=== PATIENT | male | born 1955 | race Caucasian/White ===

== ENCOUNTER 2019-07-28 13:59 | Outpatient (RCR) | payer MEDICARE, SELFPAY | END 2019-08-06 23:59 | disposition home or self-care (01) | LOC: SPT 13:59 | PROVIDERS: Family Provider Physician Assistant; PCP Physician Assistant; Referring Provider Orthopaedic Surgery; Visit Provider Orthopaedic Surgery | DX: M75.02 Adhesive capsulitis of left shoulder (principal) | CPT/HCPCS: 97110; 97140; 97161 ==

== ENCOUNTER 2019-08-12 | Outpatient (RCR) | payer MEDICARE, SELFPAY | END 2019-08-13 | disposition home or self-care (01) | LOC: SPT | PROVIDERS: Family Provider Physician Assistant; PCP Physician Assistant; Referring Provider Orthopaedic Surgery; Visit Provider Orthopaedic Surgery | DX: M75.32 Calcific tendinitis of left shoulder (principal) | CPT/HCPCS: 97110 ==

== ENCOUNTER 2019-08-25 07:58 | Day surgery (SDC) | payer MEDICARE, SELFPAY ==
[2019-08-24 12:47] VITALS: BMI 27.3
[2019-08-25] VITALS (10 sets, daily range): BP systolic 104–158; BP diastolic 67–96; PULSE 71–81; RESP 15–20; TEMP 36.2–36.4; O2SAT 96–100
[2019-08-25 08:47] LABS: Glucose Point of Care 182 mg/dL (70-110)
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
[2019-08-25] MEDS: sodium chloride 0.9% 1,000 ML 30 ML IV (08:53)
[2019-08-25] MEDS: midazolam 1 mg/mL INJ 2 mL 2 MG IVP (09:05)
--- NOTE | 2019-08-25 09:15 | ANES.PROC ---
Anesthesia Procedures Procedure/Date: 08/25/19 Nerve Block ^: Nerve Block 1: Main Anesthesia: general anesthesia Time Out Performed: Yes Consent: requested by attending/covering physician, from patient, risks and benefits reviewed and patient agrees to proceed Nerve block location: interscalene (L) Anesthesia monitors applied: pulse oximetry, BP cuff and oxygen Nerve block position: semi sitting Anesthetic Used: ropivicaine 0.5% (20 ml) and with decadron ( 4 mg) Ultrasound used to: recognize landmarks and visualize and ID interscalene groove Nerve Stimulator Used?: No Interscalene/Femoral BLK: 2 stimuplex 22 g needle used for position and inplane approach Injection: neg aspiration of heme Patient Tolerated Procedure: well Complications: none
--- NOTE | 2019-08-25 09:20 | SUR.PREOP ---
LEFT NERVE BLOCK PERFORMED BY DOCTOR CASTANEDA SUCCESSFULLY. PT TOLERATED WELL.GOOD RESPIRATIONS. VITAL SIGNS MONITORED THROUGHOUT.
--- NOTE | 2019-08-25 09:26 | W.PM.OPSUD ---
Surgery/Procedure H&P Update DATE OF PROCEDURE: August 25, 2019 DATE H&P PERFORMED: 08/19/19 H&P UPDATE INFORMATION: I have reviewed H&P completed within last 30 days PREOP DIAGNOSIS: CALCIFIC TENDINITIS LEFT SHOULDER PLANNED PROCEDURE: Operation Date: 08/25/19 09:20 Proposed Procedures p Shoulder Arthroscopy 39149 M75.32(Left) - Jeremi Romeo MD
--- NOTE | 2019-08-25 11:28 | P.OP_ITS ---
Operative Report Date of procedure: August 25, 2019 Pre-op Diagnosis: CALCIFIC TENDINITIS LEFT SHOULDER Post-op diagnosis: same Post-op Findings: The patient had a well demarcated area of calcification in the central supraspinatus just medial to its insertion on the greater tuberosity. He had generalized degeneration of the tendon with poor vascularity Procedure Done: Debridement of calcific deposits left rotator crater cuff and arthroscopic repair with bio inductive implant, left subacromial decompression Implants: Regenetin implant Pathology: none sent Anesthesia: General and Nerve Block (Interscalene block) Estimated blood loss (mL): 10 Findings: The patient had a well demarcated area of calcium buildup just medial to the supraspinatus insertion. There is generalized poor vascularity in the area of deposits. Debridement left a area of central intralaminar area tearing. A bio inductive implant was placed to facilitate healing of this poorly vascular degenerative tendon. Patient had prominent subacromial spurring, type II f Condition: stable Disposition: PACU Brief History: The patient is a 64-year-old male with left shoulder pain attributable to calcific tendinitis Procedure: Rating room after he was given an interscalene block in holding. He was given 2 g of Ancef. He was prepped and draped in the lateral position with his left shoulder exposed. A timeout was performed. The shoulder was initially entered through a posterior portal made 2 cm inferior medial to the posterior horn of the acromion. A scope cannula and trocar were driven into the glenohumeral joint space. An anterior working portal was made. The biceps tendon was probed and found to be healthy. The articular side of the rotator cuff was inspected and found to be free of tearing. There is no specific degenerative changes of the glenohumeral joint and his labrum appeared healthy. The scope was then moved to the subacromial space and a lateral working portal was fashioned. He had prominent anterior spurring of his acromion. A subacromial decompression was chosen to alleviate pressure on the rotator cuff and make more room for the future bio inductive implant. The leading edge of the acromion was outlined with a Rush and Nephew Werewolf probe. A 5.5 mm acromionizer was introduced and approximately 5 mm of anterior and inferior acromion removed. Attention was then focused on the rotator cuff. The tuberosity was palpated just medial to that a probe was used to penetrate the bursal cuff. A well- circumscribed area of calcium deposits was identified. The probe was passed into the defect and used to free deposits which were removed with an incisor shaver. This left an approximately 1 cm in diameter intrasubstance area by tearing of a poor vascularity. To facilitate healing of this degenerative poorly vascular tissue a bio and inductive implant was a place. The scope was then placed back into the glenohumeral joint. The biceps tendon was marked with 2 spinal needles. The scope was then placed back into the subacromial space. Through a more distal anterior portal the Rush and Nephew Regeneten implant was then placed. It was fixed anteriorly and medially and posteriorly with soft tissue refugio placed through a small lateral portal just lateral to the acromion. To the lateral working portal and anterior lateral and posterior lateral bone refugio were placed. Arthroscopy equipment was removed. Orders were closed with 3-0 Prolene. Sterile dressings were applied. The patient was placed in a sling. The patient was extubated taken to recovery room in stable condition.
--- NOTE | 2019-08-25 11:42 | SUR.PHASEI ---
PT AWAKE ALERT ON RA GOOD RESP NOTED VSS PT DENIES PAIN AND NAUSEA FIRST ICE TO LT SHOULDER , DISTAL LT HAND PINK WARM , SLING IN PLACE HOB AT 40 DEGREES, SATS 95%
== END 2019-08-25 13:35 | disposition home or self-care (01) ==
PROVIDERS: Family Provider Physician Assistant; PCP Physician Assistant; Visit Provider Orthopaedic Surgery
PROC: (CPT 29805; principal; 2019-08-25 09:20)
DX: M75.32 Calcific tendinitis of left shoulder (principal); M75.02 Adhesive capsulitis of left shoulder; I10 Essential (primary) hypertension; E11.9 Type 2 diabetes mellitus without complications; Z86.73 Personal history of transient ischemic attack (TIA), and cerebral infarction without residual deficits; F17.290 Nicotine dependence, other tobacco product, uncomplicated; Z79.82 Long term (current) use of aspirin; Z79.84 Long term (current) use of oral hypoglycemic drugs
CPT/HCPCS: 29823; 29826; 29827; 12345; 36416; 82962; 96374; C1713; J0690; J1100; J2001; J2250; J2405; J2704; J2795; J3010; J3490; J7030

== ENCOUNTER → 2019-11-30 14:44 | Outpatient (BNVA) | payer MEDICARE, SELFPAY | PROVIDERS: Family Provider Physician Assistant; PCP Physician Assistant; Visit Provider Specialist | DX: G40.109 Localization-related (focal) (partial) symptomatic epilepsy and epileptic syndromes with simple partial seizures, not intractable, without status epilepticus (principal); F17.220 Nicotine dependence, chewing tobacco, uncomplicated | CPT/HCPCS: 99213 ==

== ENCOUNTER 2020-06-15 12:07 | Outpatient (CLI) | payer MEDICARE, SELFPAY ==
--- NOTE | 2020-06-15 13:00 | MR_ITS ---
WS: [id number] MRA ANGIOGRAPHY JAMUL OF BERNAL HISTORY: G45.9 - Transient cerebral ischemic attack, unspecified COMPARISON: None available. TECHNIQUE: 3-D MR angiography is performed of the [place] of [place]. All images are reviewed including source images. Small caliber but patent distal RIGHT vertebral artery. Dominant LEFT vertebral artery. Basilar arter y is normal caliber. Posterior cerebral arteries are patent. Posterior communicating arteries are bot h present and patent although very small caliber. Intracranial portion of the internal carotid arteries are normal course and caliber. No significant a therosclerosis, stenosis or aneurysm identified. Middle and anterior cerebral arteries are both paten t with no significant disease. Anterior communicating artery is also normal. MR/MR angio head wo con [id number] IMPRESSION: 1. Patent but hypoplastic posterior communicating arteries, bilateral. 2. No aneurysms or occlusions.
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
[2020-06-15 13:39] LABS: Blood Urea Nitrogen 13 mg/dL (8-23); Glomerular Filtration Rate 113.2 mL/min (90-130)
--- NOTE | 2020-06-15 13:45 | MR_ITS ---
WS: [id number] MRA CAROTID ARTERIES HISTORY: G45.9 - Transient cerebral ischemic attack, unspecified COMPARISON: None available. TECHNIQUE: MRA is performed with intravenous gadolinium. MIP and source images are reviewed. Right: Normal common, internal and external carotid arteries. No stenosis or occlusions. Left: Normal common, internal and external carotid arteries. No stenosis or occlusion. Subclavian Arteries: Normal with no stenosis. Vertebral Arteries: Normal with no stenosis or occlusions. LEFT vertebral artery is slightly dominant . MR/MR angio neck w con* [id number] IMPRESSION: Normal MR angiographic carotid arteries. No significant stenosis.
== END 2020-06-15 12:08 | disposition home or self-care (01) ==
LOC: RADSHAW 12:13
PROVIDERS: Family Provider Physician Assistant; PCP Physician Assistant; Visit Provider Specialist
DX: G45.9 Transient cerebral ischemic attack, unspecified (principal); G31.9 Degenerative disease of nervous system, unspecified; I63.9 Cerebral infarction, unspecified
CPT/HCPCS: 70544; 70548; 70551; 82565; 84520; A9579

== ENCOUNTER → 2020-11-21 14:01 | Outpatient (BNVA) | payer MEDICARE, SELFPAY | PROVIDERS: Family Provider Physician Assistant; PCP Physician Assistant; Visit Provider Specialist | DX: G40.109 Localization-related (focal) (partial) symptomatic epilepsy and epileptic syndromes with simple partial seizures, not intractable, without status epilepticus (principal); R55 Syncope and collapse; F17.220 Nicotine dependence, chewing tobacco, uncomplicated | CPT/HCPCS: 99214 ==

== ENCOUNTER 2021-07-12 18:07 | Emergency (ER) | payer MEDICARE, SELFPAY ==
[2021-07-12 18:13] VITALS: BP 170/81; PULSE 116; RESP 16; TEMP 36.6; O2SAT 99; BMI 28.1
--- NOTE | 2021-07-12 18:17 | XR_ITS ---
WS: [id number] PORTABLE CHEST HISTORY: RIB PAIN FALL COMPARISON: 04/01/2016 Vague area of increased density posterior to the LEFT heart partially obscuring the LEFT ventricle. M ild coarsened thickened interstitial changes throughout the periphery of the LEFT upper lobe. No ple ural effusion or pneumothorax. Cardiac size: Mildly enlarged cardiac silhouette. Mediastinum/Aorta: Mild atherosclerosis aorta. No osseous abnormality seen. No rib fractures identified. If patient's pain is in the LEFT lower thorax the lung changes may be re lated to a pulmonary contusion. XR/XR chest 1V portable [id number] IMPRESSION: 1. Increased consolidation with obscuration of the LEFT heart border. Favor th is is probably pneumonia. Recommend follow-up to resolution to exclude underlyi ng mass or neoplasm. 2. Mild cardiomegaly.
--- NOTE | 2021-07-12 18:19 | XRR_ITS ---
PROCEDURE INFORMATION: Exam: XR Left Ribs with PA Chest Exam date and time: 07/12/2021 6:19 PM Age: 66 years old Clinical indication: Other: Lt. Rib pain; Additional info: Fall TECHNIQUE: Imaging protocol: XR Left ribs with PA chest. Views: 3 views COMPARISON: CR XR chest 1V portable [id number] 07/12/2021 6:26 PM FINDINGS: Lungs: No consolidation. Pleural spaces: No pleural effusion. No pneumothorax. Heart/Mediastinum: Mild cardiomegaly. Bones/joints: No evidence of left rib fracture. Visualized osseous structures are intact. XR/XR ribs LT mn 3V w CXR1V [id number] IMPRESSION: 1. No evidence of left rib fracture. 2. Mild cardiomegaly.
--- NOTE | 2021-07-12 19:47 | ED_ITS ---
HPI - Fall General: Chief Complaint: Fall Stated Complaint: Injury Rib Hurt Time Seen by Provider: 07/12/21 19:11 History of Present Illness: HPI Narrative: Patient fell striking chest on a step today he says he has rib pain. Denies any shortness of breath or other related problems. complaint: fall Onset (ago): hour(s) Fall from: standing Fall witnessed: no Place fall occurred: home Loss of consciousness: None Context: tripped/slipped Associated symptoms-after fall: Reports no associated symptoms Review of Systems Const: Denies: fever(s) or chills Resp: Denies: dyspnea Musc: Reports: other (Rib pain from fall striking a step today) Psych: Denies: anxiety PFSH ED PFSH: Medical History (Updated 07/12/21 @ 19:44 by MICHAEL Trvais) Diabetes type 2, controlled Social History Smoking and tobacco status: heavy tobacco smoker smokeless tobacco Smokeless tobacco user: chewing tobacco Alcohol intake: never History of recent travel: No Physical Exam Const: COMMON NORMALS: no acute distress GENERAL APPEARANCE: cooperative Resp: COMMON NORMALS: normal respiratory effort Psych: COMMON NORMALS: mental status grossly normal Skin: COMMON NORMALS: no rashes or lesions noted GENERAL SKIN EXAM: no rashes or lesions noted Course Vital Signs: Vital signs: Vital Signs Temperature 97.9 F 07/12/21 18:13 Pulse Rate 116 H 07/12/21 18:13 Respiratory Rate 16 07/12/21 18:13 Blood Pressure 170/81 07/12/21 18:13 Pulse Oximetry 99 07/12/21 18:13 Discharge Plan Discharge Patient Disposition: Home Clinical Impression: Contusion of rib on left side Qualifiers: Encounter type: initial encounter Qualified Code(s): S20.212A - Contusion of left front wall of thorax, initial encounter Condition: Stable Prescriptions: New Celebrex 100 mg capsule 100 mg PO BID Qty: 20 RF: 0 Discontinued naproxen [Naprosyn] 500 mg tablet 500 mg PO BID PRN (Reason: pain) Qty: 60 RF: 0 No Action carbamazepine [Tegretol] 200 mg tablet 200 mg PO DAILY Qty: 90 RF: 3 levetiracetam [Keppra] 1,000 mg tablet 1,000 mg PO DAILY Qty: 90 RF: 3 metformin 850 mg tablet 850 mg PO BID RF: 0 Januvia 25 mg tablet 25 mg PO ONCE RF: 0 losartan 50 mg tablet 100 mg PO DAILY RF: 0 metoprolol succinate 50 mg Tablet Extended Release 24 Hr 50 mg PO DAILY RF: 0 amlodipine 5 mg Tablet 5 mg PO DAILY RF: 0 rosuvastatin 10 mg tablet 10 mg PO DAILY RF: 0 oxycodone 5 mg tablet 5 mg PO Q4H PRN (Reason: pain) Qty: 40 RF: 0 Discharge Orders: Discharge ED (Routine); Ordered 07/12/21 Ordered By: Rich Simpson Discharge Diet: Usual diet Discharge Activity: Increase activity as tolerated Patient Instructions: Contusion in Adults (ED) Activity Restrictions/Additional Instructions: Follow-up with medical provider as directed. Take medications as prescribed. Return to the ER or your medical provider if condition worsens. Please read and understand discharge instructions. If any questions ask please. Apply ice to area as needed. Coding Level of Care Code ED Infrastructure Developer for Manoj Haines
[2021-07-12 20:02] VITALS: RESP 18
== END 2021-07-12 20:03 | disposition home or self-care (01) ==
PROVIDERS: Emergency Provider Nurse Practitioner Family
DX: S20.212A Contusion of left front wall of thorax, initial encounter (principal); E11.9 Type 2 diabetes mellitus without complications; F17.220 Nicotine dependence, chewing tobacco, uncomplicated; W19.XXXA Unspecified fall, initial encounter
CPT/HCPCS: 71045; 71101; 99282

== ENCOUNTER → 2021-11-21 14:47 | Outpatient (BNVA) | payer MEDICARE, SELFPAY | PROVIDERS: Visit Provider Specialist | DX: G40.109 Localization-related (focal) (partial) symptomatic epilepsy and epileptic syndromes with simple partial seizures, not intractable, without status epilepticus (principal) | CPT/HCPCS: 99212; 99214 ==

== ENCOUNTER 2022-09-04 10:51 | Emergency (ER) | payer MEDICARE, SELFPAY ==
[2022-09-04 11:30] VITALS: BP 125/80; PULSE 83; TEMP 36.7; O2SAT 97; BMI 28.1
--- NOTE | 2022-09-04 11:37 | XRR_ITS ---
PROCEDURE INFORMATION: Exam: XR Right Knee Exam date and time: 09/04/2022 11:48 AM Age: 67 years old Clinical indication: Injury or trauma; Fall; Blunt trauma; Knee; Right TECHNIQUE: Imaging protocol: Radiologic exam of the right knee. Views: 3 views. COMPARISON: CR XR foot RT min 3V* [id number] 09/04/2022 11:46 AM FINDINGS: Bones/joints: Osseous structures of the knee normal. No fracture. No joint effusion. Soft tissues unremarkable. Soft tissues: See Bones/joints finding. XR/XR knee RT 3V* [id number] IMPRESSION: Normal knee.
--- NOTE | 2022-09-04 11:37 | XRR_ITS ---
PROCEDURE INFORMATION: Exam: XR Right Ankle Exam date and time: 09/04/2022 11:44 AM Age: 67 years old Clinical indication: Injury or trauma; Fall; Sprain or strain; Ankle; Right TECHNIQUE: Imaging protocol: Radiologic exam of the right ankle. Views: 3 or more views. COMPARISON: No relevant prior studies available. FINDINGS: Bones/joints: Medial and lateral malleoli are normal. Ankle mortise symmetrical. No fracture. Hindfoot foot unremarkable. Tibiotalar joint and subtalar joint normal. Soft tissues: Mild soft tissue swelling laterally. Mild soft tissue swelling adjacent to the lateral malleolus. Spur formation at the insertion of the Achilles' tendon XR/XR ankle RT min 3V* [id number] IMPRESSION: 1. No fracture 2. Mild soft tissue swelling adjacent to the lateral malleolus.
--- NOTE | 2022-09-04 11:43 | XRR_ITS ---
PROCEDURE INFORMATION: Exam: XR Right Foot Exam date and time: 09/04/2022 11:46 AM Age: 67 years old Clinical indication: Injury or trauma; Fall; Sprain or strain; Foot; Right; Additional info: Injury/pain TECHNIQUE: Imaging protocol: Radiologic exam of the right foot. Views: 3 or more views. COMPARISON: CR XR ankle RT min 3V* [id number] 09/04/2022 11:44 AM FINDINGS: Bones/joints: hindfoot-midfoot and midfoot-forefoot articulations are normal. metatarsals and the phalanges without an acute process. subtalar joint and the tibiotalar joint appears normal. Ossific prominence dorsally at the level of the midfoot forefoot articulation. Likely chronic. Soft tissues: Normal. XR/XR foot RT min 3V* [id number] IMPRESSION: No acute process.
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
--- NOTE | 2022-09-04 14:49 | DCPLANNER ---
Addendum entered by Sania Gonzales 09/12/22 07:59: Patient had a follow up appointment scheduled with ortho - patient did attend appointment. Original Note: manager line had message to schedule a follow up appointment for patient with ortho. manager line sent patients information to the front office staff at ortho. Patients information will be printed and reviewed. Clinic will call patient with appointment information.
--- NOTE | 2022-09-05 14:21 | DCPLANNER ---
Addendum entered by Sania Gonzales 09/05/22 14:24: this was on wrong patient Original Note: hotel operations manager had message to schedule a follow up appointment for patient with cardiology. hotel operations manager sent patients information to the front office staff at [facility]. Patients information will be printed and reviewed. Clinic will call patient with appointment information. hotel operations manager also had message to schedule an outpatient appointment with heart care for a 7 day event monitor. hotel operations manager faxed signed order to heart care, who will call patient with appointment information.
--- NOTE | 2022-09-11 15:05 | DCPLANNER ---
09.06.22 - TCM called patient due to no primary care physician listed in patients chart - patient states that he sees Donna Lama [place] [facility] [place]
== END 2022-09-04 13:26 | disposition home or self-care (01) ==
PROVIDERS: Emergency Provider Physician Assistant; PCP Physician Assistant
DX: S93.401A Sprain of unspecified ligament of right ankle, initial encounter (principal); Z79.84 Long term (current) use of oral hypoglycemic drugs; E11.9 Type 2 diabetes mellitus without complications; V29.39XA Other motorcycle (driver) (passenger) injured in unspecified nontraffic accident, initial encounter; S80.211A Abrasion, right knee, initial encounter; S92.901A Unspecified fracture of right foot, initial encounter for closed fracture
CPT/HCPCS: 73562; 73610; 73630; 99283; E0114

== ENCOUNTER 2022-09-10 15:13 | Outpatient (CLI) | payer MEDICARE, SELFPAY | END 2022-09-10 15:14 | disposition home or self-care (01) | LOC: SPT 15:14 | PROVIDERS: Visit Provider Podiatrist Foot & Ankle Surgery | DX: Z46.89 Encounter for fitting and adjustment of other specified devices (principal); S99.921D Unspecified injury of right foot, subsequent encounter; V29.99XD Rider (driver) (passenger) of other motorcycle injured in unspecified traffic accident, subsequent encounter; S92.024A Nondisplaced fracture of anterior process of right calcaneus, initial encounter for closed fracture; S92.311A Displaced fracture of first metatarsal bone, right foot, initial encounter for closed fracture; S92.251A Displaced fracture of navicular [scaphoid] of right foot, initial encounter for closed fracture; V29.99XA Rider (driver) (passenger) of other motorcycle injured in unspecified traffic accident, initial encounter | CPT/HCPCS: 97760; 99204; L4361 ==

== ENCOUNTER 2022-09-12 07:41 | Outpatient (CLI) | payer MEDICARE, SELFPAY ==
--- NOTE | 2022-09-12 08:00 | CT_ITS ---
WS: [id number] CT RIGHT FOOT, NONCONTRAST. HISTORY: surgical planning possible fracture to the second met Technique: All CT scans at [facility] use at least one of these dose optimization techniques: automated exposure control; mA and/or kV adjustment per patient size (includes targeted exams where dose is matched to clinical indication); or iterative reconstruction. DLP: 114.05 mGy.cm COMPARISON: Foot radiograph 09/04/2022. Acute fracture involving the anterior process of the calcaneus. There are several small avulsion frac tures involving the lateralmost calcaneus. The remaining calcaneus is normal. No talar fracture. Norm al alignment of the tarsal bones. There is in the additional very tiny avulsion fracture from the aren icular closely associated with the anterior calcaneal process fracture. This is probably an additiona l impaction fracture from the navicular. Small osteophyte versus tiny avulsion fracture along the dorsal surface of the foot. This is a fractu re most likely from the intermediate cuneiform. Tiny avulsion fracture from the proximal dorsal surfa ce first metatarsal. Remaining metatarsals are intact. Small amount of soft tissue edema around the midfoot. CT/CT foot RT wo con* [id number] IMPRESSION: 1. Small avulsion fractures from the anterior, lateral process of the calcaneu s. 2. Additional small impaction fracture from the navicular. 3. Small avulsion fracture from the dorsal surface of the intermediate cuneifo rm and proximal first metatarsal.
== END 2022-09-12 07:42 | disposition home or self-care (01) ==
PROVIDERS: PCP Physician Assistant; Visit Provider Podiatrist Foot & Ankle Surgery
DX: Z01.818 Encounter for other preprocedural examination (principal); S92.321A Displaced fracture of second metatarsal bone, right foot, initial encounter for closed fracture; S92.021A Displaced fracture of anterior process of right calcaneus, initial encounter for closed fracture; S92.251A Displaced fracture of navicular [scaphoid] of right foot, initial encounter for closed fracture; S92.231A Displaced fracture of intermediate cuneiform of right foot, initial encounter for closed fracture; X58.XXXA Exposure to other specified factors, initial encounter
CPT/HCPCS: 73700

== ENCOUNTER → 2022-09-23 13:33 | Outpatient (BNVA) | payer MEDICARE, SELFPAY | PROVIDERS: PCP Physician Assistant; Visit Provider Podiatrist Foot & Ankle Surgery | DX: S92.034D Nondisplaced avulsion fracture of tuberosity of right calcaneus, subsequent encounter for fracture with routine healing (principal); S92.301D Fracture of unspecified metatarsal bone(s), right foot, subsequent encounter for fracture with routine healing; S92.234D Nondisplaced fracture of intermediate cuneiform of right foot, subsequent encounter for fracture with routine healing; V29.99XD Rider (driver) (passenger) of other motorcycle injured in unspecified traffic accident, subsequent encounter | CPT/HCPCS: 73630; 99204 ==

== ENCOUNTER 2022-09-23 15:22 | Outpatient (CLI) | payer MEDICARE, SELFPAY | END 2022-09-23 15:23 | disposition home or self-care (01) | LOC: SPT 15:23 | PROVIDERS: PCP Physician Assistant; Visit Provider Podiatrist Foot & Ankle Surgery | DX: Z46.89 Encounter for fitting and adjustment of other specified devices (principal); S92.234D Nondisplaced fracture of intermediate cuneiform of right foot, subsequent encounter for fracture with routine healing; S92.301D Fracture of unspecified metatarsal bone(s), right foot, subsequent encounter for fracture with routine healing; S92.034D Nondisplaced avulsion fracture of tuberosity of right calcaneus, subsequent encounter for fracture with routine healing; X58.XXXD Exposure to other specified factors, subsequent encounter | CPT/HCPCS: 97760; L1902 ==

== ENCOUNTER → 2022-10-28 14:49 | Outpatient (BNVA) | payer MEDICARE, SELFPAY | PROVIDERS: PCP Physician Assistant; Visit Provider Podiatrist Foot & Ankle Surgery | DX: S92.301D Fracture of unspecified metatarsal bone(s), right foot, subsequent encounter for fracture with routine healing (principal); S92.034D Nondisplaced avulsion fracture of tuberosity of right calcaneus, subsequent encounter for fracture with routine healing; S92.234D Nondisplaced fracture of intermediate cuneiform of right foot, subsequent encounter for fracture with routine healing; V29.99XD Rider (driver) (passenger) of other motorcycle injured in unspecified traffic accident, subsequent encounter | CPT/HCPCS: 99213 ==

== ENCOUNTER → 2022-11-20 13:50 | Outpatient (BNVA) | payer MEDICARE, SELFPAY | PROVIDERS: PCP Physician Assistant; Visit Provider Specialist | DX: G40.109 Localization-related (focal) (partial) symptomatic epilepsy and epileptic syndromes with simple partial seizures, not intractable, without status epilepticus (principal); G40.409 Other generalized epilepsy and epileptic syndromes, not intractable, without status epilepticus; E11.9 Type 2 diabetes mellitus without complications; Z79.84 Long term (current) use of oral hypoglycemic drugs | CPT/HCPCS: 99212 ==

== ENCOUNTER → 2023-10-30 13:43 | Outpatient (BNVA) | payer MEDICARE, SELFPAY | PROVIDERS: PCP Physician Assistant; Visit Provider Otolaryngology | DX: H90.0 Conductive hearing loss, bilateral (principal); H61.23 Impacted cerumen, bilateral | CPT/HCPCS: 69210; 99202 ==

== ENCOUNTER → 2023-11-19 11:38 | Outpatient (BNVA) | payer MEDICARE, SELFPAY | PROVIDERS: PCP Physician Assistant; Visit Provider Specialist | DX: G40.109 Localization-related (focal) (partial) symptomatic epilepsy and epileptic syndromes with simple partial seizures, not intractable, without status epilepticus (principal) | CPT/HCPCS: 99213 ==

== ENCOUNTER → 2024-11-17 11:11 | Outpatient (BNVA) | payer MEDICARE, SELFPAY | PROVIDERS: PCP Physician Assistant; Visit Provider Specialist | DX: G40.109 Localization-related (focal) (partial) symptomatic epilepsy and epileptic syndromes with simple partial seizures, not intractable, without status epilepticus (principal) | CPT/HCPCS: 99213 ==